=== PATIENT | female | born 1940 | race Caucasian/White ===

== ENCOUNTER 2023-02-11 07:51 | Day surgery (SDC) | payer MEDICARE, BC ==
[~2023-02-11] VITALS: Ht 167.6 cm; Wt 76.7 kg
[2023-02-11] VITALS (9 sets, daily range): BP systolic 92–129; BP diastolic 52–89; PULSE 54–118; RESP 16; TEMP 98.2; O2SAT 93–100
[2023-02-11] MEDS ORDERED: PROP150T2 PO (08:25)
[2023-02-11] MEDS ORDERED: WARF-55 PO (08:25)
[2023-02-11] MEDS ORDERED: LEVO112T5 PO (08:25)
[2023-02-11] MEDS ORDERED: FURO20TA4 PO (08:25)
[2023-02-11] MEDS ORDERED: MIDAZolam 1mg/ml 10ml vial IV ONE (08:25)
[2023-02-11] MEDS ORDERED: normal saline 1000ml 1,000 ML IV SCH (08:25)
[2023-02-11] MEDS ORDERED: fentaNYL/PF 50MCG/1 ML 2ML syringe IV ONE (08:25)
[2023-02-11] MEDS ORDERED: METO-395 PO (08:25)
[2023-02-11 08:44] LABS: BASOPHILS # (AUTO) 0.1 X10'3 (0-0.2); BASOPHILS % (AUTO) 1.5 % (0-1); EOSINOPHILS # (AUTO) 0.1 X10'3 (0-0.9); EOSINOPHILS % (AUTO) 1.5 % (0-6); HEMATOCRIT 41.6 % (35.0-45.0); HEMOGLOBIN 13.8 g/dl (12.0-16.0); LYMPHOCYTES # (AUTO) 1.6 X10'3 (1.1-4.8); LYMPHOCYTES % (AUTO) 22.4 % (21-51); MEAN CORPUSCULAR HEMOGLOBIN 29.6 PG (27.0-31.0); MEAN CORPUSCULAR HGB CONC 33.1 g/dL (33.0-36.5); MEAN CORPUSCULAR VOLUME 89.7 FL (78-98); MEAN PLATELET VOLUME 7.9 FL (7.4-10.4); MONOCYTES # (AUTO) 0.8 X10'3 (0-0.9); MONOCYTES % (AUTO) 11.7 % (2-12); NEUTROPHILS # (AUTO) 4.5 X10'3 (1.8-7.7); NEUTROPHILS % (AUTO) 62.9 % (42-75); PLATELET COUNT 267 X10'3 (140-440); RED BLOOD COUNT 4.64 X10'6 (4.20-5.60); WHITE BLOOD COUNT 7.1 X10'3 (4.5-11.0)
[2023-02-11 08:56] LABS: ALBUMIN 3.5 G/DL (3.4-5.0); ANION GAP 10 (8-16); BLOOD UREA NITROGEN 17 MG/DL (7-18); BUN/CREATININE RATIO 18.3 (10.0-20.0); CALCIUM 9.1 MG/DL (8.5-10.1); CHLORIDE 107 MMOL/L (99-107); CREATININE 0.93 MG/DL (0.40-0.90); GLUCOSE 96 MG/DL (70-104); MAGNESIUM 2.3 MG/DL (1.5-2.4); POTASSIUM 4.1 MMOL/L (3.5-5.1); SODIUM 140 MMOL/L (135-145); TOTAL CARBON DIOXIDE 22.6 MMOL/L (24-32); eCRCL 42 ML/MIN; eGFR 57 ML/MIN
[2023-02-11 09:36] LABS: PROTHROMBIN TIME 39.4 SECONDS (9.0-12.0)
== END 2023-02-11 12:05 | disposition home or self-care (01) ==
LOC: SSTAY O 07:51
PROVIDERS: ATTEND Internal Medicine Cardiovascular Disease
DX: I48.0 Paroxysmal atrial fibrillation (principal); I47.1 Supraventricular tachycardia; E03.9 Hypothyroidism, unspecified; E78.5 Hyperlipidemia, unspecified; Z79.01 Long term (current) use of anticoagulants; Z79.899 Other long term (current) drug therapy; Z79.82 Long term (current) use of aspirin; Z96.651 Presence of right artificial knee joint; Z98.49 Cataract extraction status, unspecified eye; Z98.890 Other specified postprocedural states; Z72.89 Other problems related to lifestyle; Z88.0 Allergy status to penicillin; Z88.8 Allergy status to other drugs, medicaments and biological substances; Z82.49 Family history of ischemic heart disease and other diseases of the circulatory system
CPT/HCPCS: 36415; 80048; 83735; 85025; 85610; 92960; 93005; J2250; J3010; J7030; A4620

== ENCOUNTER 2024-02-01 10:20 | Emergency (ER) | payer MEDICARE, BC ==
[~2024-02-01] VITALS: Ht 165.1 cm; Wt 72.0 kg
[~2024-02-01 10:20] MED LIST: FURO20TA4 PO; LEVO112T5 PO; METO-395 PO; PROP150T2 PO; WARF-55 PO
--- NOTE | 2024-02-01 11:10 | NUR ---
KING AURELIOP IN ROOM WITH PATIENT.
[2024-02-01] MEDS: ketorolac trometh 15mg/ml vial 15 MG/ML ML IM ONE (11:29)
[2024-02-01 12:08] VITALS: BP 153/72; PULSE 56; RESP 16; TEMP 98; O2SAT 97
== END 2024-02-01 12:09 | disposition home or self-care (01) ==
LOC: ER 10:20
DX: M25.562 Pain in left knee (principal); M25.462 Effusion, left knee; Z88.0 Allergy status to penicillin; Z88.8 Allergy status to other drugs, medicaments and biological substances; Z79.899 Other long term (current) drug therapy; Z79.01 Long term (current) use of anticoagulants
CPT/HCPCS: 73560; 93971; 96372; 99285; J1885